=== PATIENT | male | born 1960 | race Caucasian/White ===

== ENCOUNTER 2021-05-22 14:03 | Emergency (ER) | payer OTHER ==
[~2021-05-22] VITALS: Ht 175.3 cm; Wt 99.8 kg
[2021-05-22 14:38] LABS: BASOPHIL 0.6 % (0-2); EOSINOPHIL 2.5 % (0-5); HCT 40.5 % (42.0-52.0); HGB 14.5 g/dl (13.2-18.0); LYMPHOCYTE 14.3 % (15-48); MCH 34.8 pg (25.0-31.0); MCHC 35.8 g/dL (32.0-36.0); MCV 97.1 fL (78.0-100.0); MONOCYTE 14.3 % (0-12); MPV 10.5 fL (6.0-9.5); NEUTROPHIL 68.1 % (41-80); NRBC 0; PLT 121 K/uL (150-400); RBC 4.17 M/uL (4.70-6.00); WBC 6.4 K/uL (4.0-10.5)
[2021-05-22 14:43] LABS: INR 1.17 (0.9-1.2); PROTHROMBIN TIME 14.3 SECONDS (11.8-13.4); PTT 33.8 SECONDS (24.4-34.7)
[2021-05-22 14:59] LABS: ALBUMIN 3.6 g/dL (3.4-5.0); BILIRUBIN - TOTAL 1.3 mg/dL (0.2-1.0); BUN/CREAT RATIO (CALC) 24.3 RATIO; CREATININE 1.15 mg/dL (0.67-1.17); GLOBULIN (CALCULATION) 4.1 g/dL; POTASSIUM 4.5 mmol/L (3.5-5.1); TOTAL PROTEIN 7.7 g/dL (6.4-8.2)
[2021-05-22 15:04] LABS: CKMB 2.2 ng/mL (0.0-3.6)
[2021-05-22] MEDS ORDERED: LACTULOSE10 G/15 ML PO (16:07)
== END 2021-05-22 16:29 | disposition home or self-care (01) ==
LOC: FER 14:03
PROVIDERS: Internal Medicine
DX: K72.90 Hepatic failure, unspecified without coma (principal); J44.9 Chronic obstructive pulmonary disease, unspecified; F17.200 Nicotine dependence, unspecified, uncomplicated
CPT/HCPCS: 36415; 70450; 71045; 80053; 80061; 82140; 82550; 82553; 83874; 84484; 85025; 85610; 85730; 93005

== ENCOUNTER 2021-09-22 17:05 | Inpatient (IN) | payer MEDICARE ==
[~2021-09-22] VITALS: Ht 175.3 cm; Wt 90.3 kg
[~2021-09-22 17:05] MED LIST: LACTULOSE10 G/15 ML PO
[2021-09-22 19:28] LABS: BASOPHIL 0.3 % (0-2); EOSINOPHIL 1.1 % (0-5); HCT 41.4 % (42.0-52.0); HGB 14.8 g/dl (13.2-18.0); MCH 34.1 pg (25.0-31.0); MCHC 35.7 g/dL (32.0-36.0); MCV 95.4 fL (78.0-100.0); MONOCYTE 12.2 % (0-12); MPV 10.8 fL (6.0-9.5); NEUTROPHIL 80.1 % (41-80); NRBC 0; PLT 135 K/uL (150-400); RBC 4.34 M/uL (4.70-6.00); RDW 14.1 % (11.5-14.0)
[2021-09-22 19:47] LABS: BILIRUBIN - TOTAL 1.4 mg/dL (0.2-1.0); BUN/CREAT RATIO (CALC) 19.2 RATIO; CREATININE 2.13 mg/dL (0.67-1.17); GLOBULIN (CALCULATION) 4.9 g/dL; TOTAL PROTEIN 8.9 g/dL (6.4-8.2)
[2021-09-22 21:08] LABS: INR 1.21 (0.9-1.2); PROTHROMBIN TIME 14.7 SECONDS (11.8-13.4); PTT 38.8 SECONDS (24.4-34.7)
[2021-09-22 22:36] LABS: CORONAVIRUS 2019 SARS-COV-2 NEGATIVE (NEGATIVE); INFLUENZA A NAA NEGATIVE (NEGATIVE)
[2021-09-23] MEDS ORDERED: MULTI-VITAMIN1 EACH PO (01:06)
[2021-09-23 01:11] LABS: BILIRUBIN NEGATIVE (NEGATIVE); BLOOD NEGATIVE Ery/uL (NEGATIVE); CLARITY CLEAR (CLEAR); COLOR YELLOW (YELLOW); GLUCOSE (U) NORMAL (NORMAL); LEUKOCYTES NEGATIVE Leu/uL (NEGATIVE); NITRITE NEGATIVE (NEGATIVE); PROTEIN NEGATIVE (NEGATIVE); UROBILINOGEN 0.2 mg/dL (0.2-1.0)
[2021-09-23] MEDS ORDERED: ZINC50 M3 PO (01:12)
[2021-09-23] MEDS ORDERED: PRILOSEC20 MG PO ×2 (01:13→03:29)
[2021-09-23] MEDS ORDERED: DAILY VITAMIN1 EAC2 PO (03:28)
[2021-09-23] MEDS ORDERED: VENTOLIN (2.5 MG/3 M INH (03:28)
[2021-09-23] MEDS ORDERED: ZINC-22050 MG PO (03:29)
[2021-09-23] MEDS ORDERED: XIFAXAN550 MG PO (03:30)
[2021-09-23] MEDS ORDERED: LASIX40 MG PO (03:31)
[2021-09-23] MEDS ORDERED: ALDACTONE100 MG PO ×2 (03:31→03:33)
[2021-09-23] MEDS ORDERED: LASIX80 MG PO (03:33)
[2021-09-23] MEDS ORDERED: LACTULOSE10 G/15 ML PO (03:56)
--- NOTE | 2021-09-23 06:24 | NUR ---
0600 09/23/21 [facility] [place] CALLED TO OBTAIN RECCORDS ON [facility]. [facility] STATED THE RECCORDS OFFICE DID NOT OPEN UNTIL 8AM. REPORT PASSED ON TO SOMMER EMMANUEL TO CALL BACK AT [phone]
[2021-09-23 08:55] LABS: HCT 37.3 % (42.0-52.0); HGB 13.3 g/dl (13.2-18.0); MCH 34.7 pg (25.0-31.0); MCHC 35.7 g/dL (32.0-36.0); MCV 97.4 fL (78.0-100.0); RBC 3.83 M/uL (4.70-6.00); RDW 14.2 % (11.5-14.0); WBC 7.1 K/uL (4.0-10.5)
[2021-09-23 09:04] LABS: BUN/CREAT RATIO (CALC) 20.8 RATIO; CREATININE 1.83 mg/dL (0.67-1.17); POTASSIUM 5.6 mmol/L (3.5-5.1)
[2021-09-23 15:25] LABS: BUN/CREAT RATIO (CALC) 23.6 RATIO; CREATININE 1.57 mg/dL (0.67-1.17); POTASSIUM 5.5 mmol/L (3.5-5.1)
[2021-09-24 05:01] LABS: BASOPHIL 0.8 % (0-2); EOSINOPHIL 3.8 % (0-5); HCT 35.3 % (42.0-52.0); HGB 12.6 g/dl (13.2-18.0); LYMPHOCYTE 8.1 % (15-48); MCH 34.1 pg (25.0-31.0); MCHC 35.7 g/dL (32.0-36.0); MCV 95.7 fL (78.0-100.0); MONOCYTE 15.4 % (0-12); MPV 11.3 fL (6.0-9.5); NEUTROPHIL 71.6 % (41-80); NRBC 0; PLT 106 K/uL (150-400); RBC 3.69 M/uL (4.70-6.00); RDW 13.9 % (11.5-14.0); WBC 6.6 K/uL (4.0-10.5)
[2021-09-24 05:21] LABS: ALBUMIN 3.1 g/dL (3.4-5.0); BILIRUBIN - TOTAL 0.7 mg/dL (0.2-1.0); BUN/CREAT RATIO (CALC) 20.8 RATIO; CREATININE 1.49 mg/dL (0.67-1.17); GLOBULIN (CALCULATION) 4.3 g/dL; POTASSIUM 4.8 mmol/L (3.5-5.1); TOTAL PROTEIN 7.4 g/dL (6.4-8.2)
[2021-09-25 06:35] LABS: BASOPHIL 0.7 % (0-2); EOSINOPHIL 3.8 % (0-5); HCT 36.1 % (42.0-52.0); HGB 12.8 g/dl (13.2-18.0); MCH 34.3 pg (25.0-31.0); MCHC 35.5 g/dL (32.0-36.0); MCV 96.8 fL (78.0-100.0); MONOCYTE 15.6 % (0-12); MPV 11.2 fL (6.0-9.5); NEUTROPHIL 73.4 % (41-80); NRBC 0; PLT 104 K/uL (150-400); RBC 3.73 M/uL (4.70-6.00); WBC 8.4 K/uL (4.0-10.5)
[2021-09-25 06:55] LABS: ALBUMIN 3.2 g/dL (3.4-5.0); BUN/CREAT RATIO (CALC) 22.6 RATIO; CREATININE 1.15 mg/dL (0.67-1.17); GLOBULIN (CALCULATION) 4.2 g/dL; POTASSIUM 4.3 mmol/L (3.5-5.1); TOTAL PROTEIN 7.4 g/dL (6.4-8.2)
[2021-09-25] MEDS ORDERED: MELATONIN5 M2 PO (08:30)
[2021-09-25] MEDS ORDERED: LACTULOSE10 G/15 ML PO (08:30)
[2021-09-25] MEDS ORDERED: LASIX80 MG PO (08:30)
[2021-09-25] MEDS ORDERED: XIFAXAN550 MG PO (08:30)
[2021-09-25] MEDS ORDERED: ALDACTONE100 MG PO (08:30)
== END 2021-09-25 12:30 | disposition home or self-care (01) | DRG 432 ==
LOC: FER 17:05 → FMS 23:10
PROVIDERS: Family Medicine; Internal Medicine; Nurse Practitioner Acute Care; Physician Assistant; ADMIT Internal Medicine
DX: K74.60 Unspecified cirrhosis of liver (principal); K72.00 Acute and subacute hepatic failure without coma; N17.9 Acute kidney failure, unspecified; E87.1 Hypo-osmolality and hyponatremia; D68.4 Acquired coagulation factor deficiency; K72.10 Chronic hepatic failure without coma; Z20.822 Contact with and (suspected) exposure to COVID-19; Z66 Do not resuscitate; K80.20 Calculus of gallbladder without cholecystitis without obstruction; D69.6 Thrombocytopenia, unspecified; M79.10 Myalgia, unspecified site; J40 Bronchitis, not specified as acute or chronic; E87.5 Hyperkalemia; E86.0 Dehydration; T50.2X5A Adverse effect of carbonic-anhydrase inhibitors, benzothiadiazides and other diuretics, initial encounter; J44.9 Chronic obstructive pulmonary disease, unspecified; F17.210 Nicotine dependence, cigarettes, uncomplicated; Z90.49 Acquired absence of other specified parts of digestive tract; Z98.890 Other specified postprocedural states; Z79.899 Other long term (current) drug therapy; Z91.14 Patient's other noncompliance with medication regimen; Z98.1 Arthrodesis status
CPT/HCPCS: 36415; 71045; 71250; 78582; 80048; 80053; 81003; 82140; 82550; 83880; 84484; 85025; 85379; 85610; 85730; 87088; 93005; 94010; 96372; 97161; 97166; 97530-GP; A9540; J1170; J1650; J2060; J2405; J7040; U0002

== ENCOUNTER 2021-11-18 14:42 | Emergency (ER) | payer MEDICARE ==
[~2021-11-18 14:42] MED LIST changes: +ALDACTONE100 MG PO; +DAILY VITAMIN1 EAC2 PO; +LASIX40 MG PO; +LASIX80 MG PO; +MELATONIN5 M2 PO; +MULTI-VITAMIN1 EACH PO; +PRILOSEC20 MG PO; +VENTOLIN (2.5 MG/3 M INH; +XIFAXAN550 MG PO; +ZINC-22050 MG PO; +ZINC50 M3 PO
[2021-11-18 17:05] LABS: BASOPHIL 0.2 % (0-2); EOSINOPHIL 1.3 & (0-5); HCT 38.1 % (42.0-52.0); HGB 12.9 g/dl (13.2-18.0); LYMPHOCYTE 4.5 % (15-48); MCHC 33.9 g/dL (32.0-36.0); MCV 100.5 fL (78.0-100.0); MONOCYTE 14.8 % (0-12); MPV 10.7 fL (6.0-9.5); PLT 129 K/uL (150-400); RBC 3.79 M/uL (4.70-6.00); RDW 15.4 % (11.5-14.0); WBC 8.76 K/uL (4.0-10.5)
[2021-11-18 17:21] LABS: ALBUMIN 3.3 g/dL (3.4-5.0); BILIRUBIN - TOTAL 1.1 mg/dL (0.2-1.0); BUN/CREAT RATIO (CALC) 16.7 RATIO; C-REACTIVE PROTEIN 5.4 mg/dL (<=0.90); CREATININE 1.26 mg/dL (0.67-1.17); GLOBULIN (CALCULATION) 3.7 g/dL; POTASSIUM 5.4 mmol/L (3.5-5.1)
[2021-11-18] MEDS ORDERED: CEFDINIR300 MG PO (22:28)
[2021-11-18] MEDS ORDERED: PERCOCET 5-3251 EACH PO (22:28)
== END 2021-11-18 22:45 | disposition home or self-care (01) ==
LOC: FER 14:42
PROVIDERS: Emergency Medicine
DX: K42.9 Umbilical hernia without obstruction or gangrene (principal); L98.499 Non-pressure chronic ulcer of skin of other sites with unspecified severity; K74.60 Unspecified cirrhosis of liver; R18.8 Other ascites; J44.9 Chronic obstructive pulmonary disease, unspecified; F17.200 Nicotine dependence, unspecified, uncomplicated; K21.9 Gastro-esophageal reflux disease without esophagitis; Z79.899 Other long term (current) drug therapy
CPT/HCPCS: 36415; 80053; 82140; 84145; 85025; 86140; J0692; Q9967

== ENCOUNTER 2022-02-25 20:08 | Emergency (ER) | payer MEDICARE ==
[~2022-02-25 20:08] MED LIST changes: +CEFDINIR300 MG PO; +PERCOCET 5-3251 EACH PO
[2022-02-25 21:27] LABS: BASOPHIL 0.7 % (0-2); EOSINOPHIL 7.8 % (0-5); HCT 26.1 % (42.0-52.0); HGB 9.3 g/dl (13.2-18.0); LYMPHOCYTE 7.1 % (15-48); MCH 35.8 pg (25.0-31.0); MCHC 35.6 g/dL (32.0-36.0); MCV 100.4 fL (78.0-100.0); MONOCYTE 17.2 % (0-12); MPV 10.4 fL (6.0-9.5); NEUTROPHIL 66.8 % (41-80); NRBC 0; RDW 19.5 % (11.5-14.0); WBC 5.7 K/uL (4.0-10.5)
[2022-02-25 21:28] LABS: PLT 94 K/uL (150-400)
[2022-02-25 21:34] LABS: INR 1.27 (0.9-1.2); PROTHROMBIN TIME 15.5 SECONDS (11.9-13.9)
== END 2022-02-25 23:32 | disposition home or self-care (01) ==
LOC: FER 20:08
PROVIDERS: Emergency Medicine
DX: R22.41 Localized swelling, mass and lump, right lower limb (principal); R05.9 Cough, unspecified; J44.9 Chronic obstructive pulmonary disease, unspecified; I11.0 Hypertensive heart disease with heart failure; I50.9 Heart failure, unspecified; Z88.1 Allergy status to other antibiotic agents
CPT/HCPCS: 36415; 71045; 85025; 85610; 93971